=== PATIENT | male | born 1965 | race Caucasian/White ===

== ENCOUNTER → 2018-12-06 08:10 | Outpatient (CLI) | payer BC ==
[2016-05-28 10:30] VITALS: BMI 23.1
[~2018-12-06 08:10] MED LIST: HYDROCODONE-APA1 TAB PO; ROBAXIN-750750 MG PO
== END | disposition home or self-care (01) ==
LOC: D.US 08:00
DX: R22.1 Localized swelling, mass and lump, neck (principal)

== ENCOUNTER → 2018-12-29 07:49 | Outpatient (CLI) | payer BC ==
[2016-05-28 10:30] VITALS: BMI 23.1
== END | disposition home or self-care (01) ==
LOC: D.CT 07:49
PROVIDERS: ATTEND Family Medicine
DX: R22.1 Localized swelling, mass and lump, neck (principal)

== ENCOUNTER 2019-11-24 05:30 | Day surgery (SDC) | payer BC ==
[2019-11-23 14:34] LABS: BASOPHILS 0.3 % (0-2); EOSINOPHILS 1.8 % (0-7); HEMATOCRIT 42.2 % (42.0-54.0); HEMOGLOBIN 14.7 g/dL (13.5-17.5); IMMATURE GRANULOCYTES 0.1 % (0-5); LYMPHOCYTES 23.5 % (15-50); MCH 32.5 pg (26.0-34.0); MCHC 34.8 g/dL (31.0-37.0); MCV 93.4 fL (80.0-100.0); MEAN PLATELET VOLUME 9.4 fL (7.4-10.4); MONOCYTES 8.7 % (2-11); NEUTROPHILS 65.6 % (40-80); PLATELET COUNT 210 10x3/uL (130-400); RBC 4.52 10x6/uL (4.20-6.10); RDW 12.7 % (11.5-14.5); WBC 7.2 10x3/uL (4.8-10.8)
[2019-11-23 14:49] LABS: ANION GAP 8.6 mmol/L (8-16); CALCIUM 8.6 mg/dL (8.5-10.1); CARBON DIOXIDE 30.5 mmol/L (21.0-32.0); CREATININE - SERUM 1.3 mg/dL (0.6-1.3); POTASSIUM - SERUM 4.1 mmol/L (3.5-5.1)
[~2019-11-24] VITALS: Ht 193 cm; Wt 90.7 kg
[~2019-11-24 05:30] MED LIST changes: +ALBUTEROL1.25 MG/3 INH
[2019-11-24] MEDS ORDERED: BAYER CHEWABLE81 MG PO (06:32)
[2019-11-24 06:43] VITALS: BP 140/85; Ht 193 cm; Wt 90.7 kg
[2019-11-24] MEDS ORDERED: ULTRAM50 MG PO (08:47)
--- NOTE | 2019-11-24 20:59 | OP ---
PATIENT NAME: DUY ORO MEDICAL RECORD: [id number] :69 LOCATION:[facility] ADMISSION DATE: SURGEON: JIMI OCAMPO MD DATE OF OPERATION: 11/24/2019 PREOPERATIVE DIAGNOSIS: Right inferior neck lipoma. POSTOPERATIVE DIAGNOSIS: Right inferior neck lipoma. PROCEDURE: Excision of 8 cm right inferior neck lipoma. SURGEON: Jimi Ocampo MD REPORT OF PROCEDURE: The patient's right neck and shoulder region were all prepped and draped in sterile fashion. A longitudinal incision was made on the inferior lateral aspect of the right neck extending out in the supraclavicular space. Electrocautery was used to dissect through the subcutaneous tissues and we the platysma. Once we did this, we encountered a large collection of fatty tissue and as we dissected through this we came across the large lipoma. This lipoma was freed up from the surrounding structures with care taken not to injure any nervous tissue that was visualized. There was a small arterial vessel, they cross through this, we had to ligate. As we dissected down to the base of this lipoma, it was noted to be very large and the base of it was densely adherent to the underlying tissues. This adherence was very close to the vascular structures extending down towards the chest cavity and for this reason I elected not to try to do any major dissection for fear of injuring the vascular structures or the brachial plexus. I went ahead and ligated across this fatty tissue using electrocautery with care taken to stop any bleeding as it came along. Once we had this lipoma completely transected, it was sent off for permanent specimen. The total size of this was approximately 8 cm. We inspected the wound bed and did not see any evidence of any bleeding and all the structures appeared to be generally intact. We irrigated out the wound thoroughly with normal saline. The platysma was then closed with multiple interrupted 3-0 Vicryls and the skin was closed with running subcutaneous 5-0 Monocryl. A total of 10 mL of 0.25% Marcaine with epinephrine was infused into the surrounding tissues and the wound was dressed appropriately. COMPLICATIONS: None. CONDITION: Stable. ANESTHESIA: General endotracheal and local. BLOOD LOSS: Minimal. TRANSINT:[id number] Voice Confirmation ID: [id number] DOCUMENT ID: [id number] OPERATIVE REPORT [id number] ORO,DUYJIMI SEYMOUR MD at 2059 CC: TED LEONARD [id number] DICTATION DATE: 11/24/19 0854 [facility] OPERATOR: 11/24/19 1117 [facility] 11/24/19 [facility] [address] [place] [address]
== END 2019-11-24 10:00 | disposition home or self-care (01) ==
LOC: D.OPS 05:30 → D.PAN 07:30 → D.OPS 10:00
PROVIDERS: ATTEND Surgery
DX: D17.0 Benign lipomatous neoplasm of skin and subcutaneous tissue of head, face and neck (principal)